=== PATIENT | female | born 1985 | race Caucasian/White ===

== ENCOUNTER 2018-12-20 15:17 | Inpatient (IN) | payer OTHER ==
[2018-12-20] VITALS (8 sets, daily range): BP systolic 114–175; BP diastolic 63–106
[~2018-12-20] VITALS: Ht 167.6 cm; Wt 116.6 kg
[2018-12-20] MEDS ORDERED: LACTATED RINGER'S 1000 ML IV STA (15:24)
[2018-12-20] MEDS ORDERED: PRENTAB9 PO (16:15)
[2018-12-20] MEDS ORDERED: LABE200T32 PO (16:15)
--- NOTE | 2018-12-20 16:51 | HPEPDOC ---
Obstetrical History & Physical General Date of Admission Dec 20, 2018 at 15:17 History of Present Illness 33 yo at 39+1 weeks gestation by LMP of 21Mar2018 c/w 9+2 week US on 2017 presents for IOL for CHTN for which she takes 400mg BID labetalol. Ms. Dyson reports feeling well today and has no complaints. She denies any vaginal bleeding, pelvic pain, or leakage of fluid. She endorses excellent movement. Chief Complaint: Induction of labor Information Provided By: Patient Age: 33 : 2 Term: 0 Pre-term: 0 Abortions: 1 Livin Care Care: Good Care Dating Final EDC: Dec 26, 2018 Final EDC for Daily Update: Dec 26, 2018 Final EDC by: LMP LMP: Mar 21, 2018 1st Trimester Date: May 21, 2018 (9+2 week US on 21May2018 c/w LMP dating. HUSSEIN remains [id number]) Antepartum Course Diagnos(e)s CHTN --> Controlled well with 400mg BID labetalol. 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 Past Medical History Medical History CHTN Obesity Surgical History: Other (Lipoma removal from arm) Family History Significant Family History: No pertinent family hx Family History Non contributory Social History Marital Status: Family situation: Spouse/partner home Psychosocial History: No pertinent psych hx * Smoker: non-smoker Alcohol: Denies Drugs: denies Imunizations Tdap status: current Influenza Status: needs Allergies Coded Allergies: No Known Allergies (Unverified , 12/20/18) Medications Scheduled Labetalol HCl (Labetalol HCl) 200 Mg Tablet, 2 TAB PO BID No.137/Iron/Folic Acd ( Vitamin Tablet) 1 Each Tablet, 1 TAB PO DAILY Physical Examination Physical Examination GENERAL: Alert and oriented times three. ABDOMEN: Gravid and non-tender to touch. FETUS: Is vertex (VTX) by sterile vaginal examination (SVE) EXTREMITIES: No edema. Laboratory Data 24H LABS Laboratory Tests 2 12/20/18 15:40: Serology Scanned Report Hepatitis B Testing Urine Culture: No Growth Pertinent Laboratoy Data Blood Type: A+ RBC Antibody Screen: Negative HIV: Negative Hepatitis B: Negative Hepatitis C: Unknown Rapid Plasma Reagin: Nonreactive Rubella: Immune Varicella: Nonreactive Chlamydia/Gonorrhea: Negative Group B Streptococcus: Negative Quad Screen Test: Negative Cystic Fibrosis: Negative Glucose Tolerance Test: 126 Anatomy Ultrasound Placenta Location: Posterior Normal Anatomy: Yes Placenta Previa: No Steroid Therapy Steroid Therapy: No Vaginal Examination Dilation: Fingertip Effacement: 50% Station: -3 Cervical Consistency: Medium Cervical Position: Posterior Presentation: Cephalic presentation (Cephalic by bedside TAUS) Position: Vertex (occiput) Assessment Heart Rate (FHR): 135 Variability: Moderate Accelerations: Positive Decelerations: None Tocometer Contractions: Yes Frequency: irregular Strength: palpated as mild Assessment/Plan Assessment 33 yo at 39+1 weeks gestation presents for IOL for CHTN. Plan Admit for IOL. Apply IV fluids. Regular diet. GBS negative. Cytotec vs lowe bulb for IOL due to cervix being unfavorable. Patient may have epidural when in active labor. Continue labetalol for CHTN. Anticipate . DO MARIO Avina CHRISTOPHER J. DO Dec 20, 2018 16:51
[2018-12-20] MEDS ORDERED: miSOPROStol 50 MCG 1/2 TAB (S0191) PO ONE (17:15)
[2018-12-20 17:27] LABS: HEMOGLOBIN 13.5 g/dl (12.0-15.5); MEAN CORPUSCULAR HEMOGLOBIN 32.6 pg (27.0-33.0); MEAN CORPUSCULAR HGB CONC 35.5 g/dl (32.0-36.5); MEAN CORPUSCULAR VOLUME 91.8 fl (80.0-96.0); PLATELET COUNT, AUTOMATED 260 10^3/uL (150-450); RED BLOOD COUNT 4.14 10^6/uL (4.00-5.40); WHITE BLOOD COUNT 9.9 10^3/uL (4.0-10.0)
[2018-12-20] MEDS ORDERED: ZANT150T40 PO (17:40)
[2018-12-20] MEDS ORDERED: MAPA500T2 PO (17:40)
[2018-12-20] MEDS ORDERED: LABETALOL 200 MG TAB PO SCH (21:00)
[2018-12-20] MEDS ORDERED: LR 1,000 ML IV SCH (21:35)
--- NOTE | 2018-12-20 21:37 | IPNPDOC ---
Text Note Date of Service The patient was seen on 12/20/18. NOTE Presented to room for assessment of progress. Cervix: /-3. Ledesma bulb placed with 60ml saline intrauterine. FHR Cat I. Will add low dose pitocin concurrently. IV analgesia PRN and then candidate for epidural when in active labor. All patient questions answered. DO Phi VS,Duc, I+O VS, Duc, I+O Laboratory Tests 12/20/18 16:48 Red Blood Count 4.14, Mean Corpuscular Volume 91.8, Mean Corpuscular Hemoglobin 32.6, Mean Corpuscular Hemoglobin Concent 35.5, Red Cell Distribution Width 13.6 Vital Signs Date Time Temp Pulse Resp B/P (MAP) Pulse Ox O2 Delivery O2 Flow Rate FiO2 12/20/18 20:28 77 16 118/63 (81) 12/20/18 18:53 98.1 MINA MARTIN DO Dec 20, 2018 21:37
[2018-12-20] MEDS ORDERED: OXYTOCIN DRIP 30 UNITS in APPROPRIATE DILUENT 1 EA IV SCH (21:45)
[2018-12-20] MEDS ORDERED: BUTORPHANOL 2 MG/ML INJ (J0595) IV ONE (21:45)
[2018-12-20] MEDS ORDERED: ONDANSETRON 4MG/2ML VIAL (J2405) IV PRN (22:45)
[2018-12-21] VITALS (23 sets, daily range): BP systolic 92–142; BP diastolic 58–87
[2018-12-21] MEDS: LABETALOL 200 MG TAB PO SCH ×2 (06:02→15:37)
[2018-12-21 07:15] LABS: HEMATOCRIT 39.2 % (36.0-47.0); HEMOGLOBIN 13.9 g/dl (12.0-15.5); MEAN CORPUSCULAR HGB CONC 35.5 g/dl (32.0-36.5); MEAN CORPUSCULAR VOLUME 90.3 fl (80.0-96.0); PLATELET COUNT, AUTOMATED 286 10^3/uL (150-450); RED BLOOD COUNT 4.34 10^6/uL (4.00-5.40); WHITE BLOOD COUNT 15.4 10^3/uL (4.0-10.0)
[2018-12-21] MEDS ORDERED: OXYTOCIN DRIP 30 UNITS in APPROPRIATE DILUENT 1 EA IV SCH (08:28)
[2018-12-21] MEDS ORDERED: MEASLES,MUMPS,RUBELLA VACCINE INJ (MMR-II) (90707) SC SCH (08:30)
[2018-12-21] MEDS ORDERED: DIBUCAINE 1% OINTMENT 30GM TOP PRN (08:30)
[2018-12-21] MEDS ORDERED: ANUSOL HC CREAM 30GM TOP PRN (08:30)
[2018-12-21] MEDS ORDERED: DOCUSATE SODIUM 100 MG CAP PO PRN (08:30)
[2018-12-21] MEDS ORDERED: miSOPROStol 200 MCG TAB (S0191) PR ONE (08:30)
[2018-12-21] MEDS ORDERED: ACETAMINOPHEN TAB 650MG DOSE (2X325MG) PO PRN (08:30)
--- NOTE | 2018-12-21 08:43 | NUR ---
[facility] L&D Delivery Note Received report from Dr. Yip and called to bedside for delivery by nursing staff. Patient pushing with very good effort, crowing noted. After a couple of pushes vtx delivered direct OA with restitution to ROT. No nuchal cord present. Left anterior shoulder followed by posterior shoulder and corpus with ease. NBN male placed on maternal abdomen for initial assessments and bonding. 3VC double clamped and cut by FOB following approximately 90 seconds for delayed pulsation. Placenta delivered Baeza and was complete and intact with central cord insertion on inspection. FF U-1 with slightly heavy flow initially and significant reduction in lochia following oxytocin bolus and 1000mcg miso MI. Vagina, cervix and perineum inspected for lacerations. Bilateral labia lacerations present with repair under local anesthesia on 3-0 vicral suture. Excellent hemostasis present. Mom and babe in stable condition following delivery; nursing well w/o difficulty when I left the room. I anticipate routine care. Delivery: at 0728, male attended by Gabriella Andrew CNM Placenta: [id number] APGARS: 9/9 Weight: 3260g, 7lb 3oz Anesthesia: local (for repair only) EBL: 600
[2018-12-21] MEDS: PRENATAL VITAMINS CHEWABLE TABLET PO SCH (09:44)
[2018-12-21] MEDS ORDERED: LIDOCAINE 1% MDV 20ML VIAL SC ONE (12:00)
[2018-12-22] MEDS: LABETALOL 200 MG TAB PO SCH ×2 (05:45→15:11)
[2018-12-22] MEDS: IBUPROFEN 600 MG TAB PO PRN (05:48)
[2018-12-22 06:00] VITALS: BP 124/67
[2018-12-22] MEDS: PRENATAL VITAMINS CHEWABLE TABLET PO SCH (08:50)
[2018-12-22 15:00] VITALS: BP 124/72
[2018-12-22 18:00] VITALS: BP 122/72
--- NOTE | 2018-12-22 18:46 | IPNPDOC ---
Progress Note Date of Service: Dec 22, 2018 Day#: 1 Progress Note SUBJECT: Ms. Dyson is a 33yo G1 now P1, PP Day #1 status post uncomplicated s pontaneous vaginal delivery at 39+wks s/p IOL d/t CHTN on 400mg BID labetalol. at 0728 on [id number], Male , 3260g. Labial lacerations with repair, doing well. She has been ambulating, voiding spontaneously without issue and tolerating regular diet. Breast feeding without issue. Reports lochia is light. Patient is ambulating well. Reports some cramping with . Denies any pain. OBJECTIVE: VITAL SIGNS: Within normal limits, afebrile. Alert and oriented times three. Abdomen: Fundus firm at U-1. Soft, NTTP. Scant Lochia ASSESSMENT: 33yo , PP Day #1, normal involution, stable and progressing well. Breastmilk only. PLAN: 1. Start discharge teaching. 2. Tylenol and Motrin for pain. 3. Encourage breast feeding and ambulation. 4. Routine PP Care 5. Plan to discharge home [id number]. VS, I&O, 24H, Fishbone Vital Signs/I&O Vital Signs Date Time Temp Pulse Resp B/P (MAP) Pulse Ox O2 Delivery O2 Flow Rate FiO2 12/22/18 18:00 97.6 89 18 122/72 (89) 12/22/18 06:00 97 I&O- Last 24 Hours up to 6 AM 12/22/18 06:00 Intake Total 2150 ml Output Total 1100 ml Balance 1050 ml BERNARDO BAIN CNM Dec 22, 2018 18:46
[2018-12-22] MEDS ORDERED: IBUP-1022 PO (18:54)
[2018-12-23] MEDS: IBUPROFEN 600 MG TAB PO PRN (04:25)
[2018-12-23 05:40] VITALS: BP 130/78
[2018-12-23] MEDS: LABETALOL 200 MG TAB PO SCH ×2 (05:50→15:00)
--- NOTE | 2018-12-23 07:10 | DS.PDOC ---
Discharge Summary General Date of Admission Dec 20, 2018 at 15:17 Date of Discharge [id number] Discharge Summary HOSPITAL COURSE: Ms. Dyson is an 33 yo G1 now P1 who underwent an uncomplicated on 21Dec2018 after being admitted for an IOL for CHTN. Her course has been unremarkable. On her day of discharge she met all appropriate discharge criteria. She was ambulating, voiding, tolerating a regular diet, and had minimal pain and lochia. BPs have been stable and she continues on 400mg BID labetalol. DISCHARGE MEDICATIONS: Please see below. ALLERGIES: Please see below. PHYSICAL EXAMINATION ON DISCHARGE: VITAL SIGNS: Please see below. GENERAL: AAOX3, laying in bed, NAD ABDOMINAL EXAMINATION: Fundus firm at U-2. No fundal tenderness EXTREMITIES: No edema PSYCHIATRIC EXAMINATION: Affect appropriate LABORATORY DATA: Please see below. ACTIVITY: Pelvic rest for 6 weeks DIET: Regular DISCHARGE PLAN: Discharge to home or to boarder status DISPOSITION: Discharge to home or to boarder status on 17Dec2018. DISCHARGE INSTRUCTIONS: 1. Pelvic rest for 6 weeks ITEMS TO FOLLOWUP ON ON OUTPATIENT: 1. appointment in 6 weeks. 2. Walk into OB clinic for a BP check next week (Thursday) DISCHARGE CONDITION: Stable. TIME SPENT ON DISCHARGE: Greater than 20 minutes. Mina Yip DO Vital Signs/I&Os Vital Signs Date Time Temp Pulse Resp B/P (MAP) Pulse Ox O2 Delivery O2 Flow Rate FiO2 12/23/18 05:40 97.3 101 17 130/78 (95) 12/22/18 06:00 97 Discharge Medications Scheduled Labetalol HCl (Labetalol HCl) 200 Mg Tablet, 2 TAB PO BID, (Reported) No.137/Iron/Folic Acd ( Vitamin Tablet) 1 Each Tablet, 1 TAB PO DAILY, (Reported) Ranitidine Hcl (Zantac) 150 Mg Tablet, 1 TAB PO BID, (Reported) Scheduled PRN Acetaminophen (Mapap) 500 Mg Tablet, 1,000 MG PO for PAIN, (Reported) Ibuprofen (Ibuprofen) 600 Mg Tablet, 600 MG PO Q6HP PRN for PAIN SCALE 1-5 Allergies Coded Allergies: No Known Allergies (Unverified , 12/20/18) MINA YIP DO Dec 23, 2018 07:10
[2018-12-23] MEDS: PRENATAL VITAMINS CHEWABLE TABLET PO SCH (09:06)
[2018-12-23 15:00] VITALS: BP 108/68
== END 2018-12-23 19:02 | disposition home or self-care (01) | DRG 807 ==
LOC: M LDI 15:17 → M OBS 12-21 11:32
PROVIDERS: ADMIT Obstetrics & Gynecology; ATTEND Obstetrics & Gynecology
PROC: 10E0XZZ Delivery of Products of Conception, External Approach (ICD-10-PCS; principal; 2018-12-21)
PROC: 3E0P7GC Introduction of Other Therapeutic Substance into Female Reproductive, Via Natural or Artificial Opening (ICD-10-PCS; 2018-12-21)
PROC: 0HQ9XZZ Repair Perineum Skin, External Approach (ICD-10-PCS; 2018-12-21)
DX: O10.02 Pre-existing essential hypertension complicating childbirth (principal); Z37.0 Single live birth; Z3A.39 39 weeks gestation of pregnancy; O99.214 Obesity complicating childbirth; E66.9 Obesity, unspecified; O70.0 First degree perineal laceration during delivery